=== PATIENT | female | born 1975 | race Caucasian/White ===

== ENCOUNTER → 2016-05-28 | Outpatient (CLI) | payer OTHER ==
[~2016-05-28] MED LIST: ABILIFY 10MG TA10 MG PO; AMOXICILLIN 50500 MG PO; ASPI325T6 PO; ASPIRIN 81M81 MG/TA2 PO; ATIVAN 1MG T1 MG/TAB PO; CARDIZEM 30MG T30 MG PO; CLARITIN 1010 MG/TAB PO; COZAAR 25MG25 MG/TAB PO; DOXYCYCLINE 10100 MG PO; FISH OIL 1000MG1 CAP PO; GARLIC100 MG PO; GEODON80 MG PO; GLUCOPHAGE1000 MG PO; HYGROTON 2525 MG/TAB PO; IMDUR 30MG30 MG/TAB PO; ISORDIL TITRADO30 MG PO; KLONOPIN 0.5MG0.5 MG PO; LAMICTAL 25MG T25 MG PO; LAMICTAL150 MG PO; LAMICTAL200 MG PO; LANTUS SOLOS100 U/ML SQ; LASIX 40MG TABL40 MG PO; LEVEMIR FLEX100 U/ML SQ; LEXAPRO 10MG10 MG PO; LIPITOR 10MG10 MG PO; LIPITOR 80MG80 MG PO; LOPRESSOR 550 MG/TAB PO; LOPRESSOR100 MG PO; MULTI VITAMINS1 TAB PO; NATURE'S BLEN5000 IU PO; NEURONTIN300 MG/CAP PO; NEXIUM 40MG40 MG PO; NITROSTAT0.4 MG/TAB SL; NOVOLOG 100U100 U/M1; PERFOROMIS20 MCG/2 M IH; PLAVIX 75MG TAB75 MG PO; PREDNISONE20 MG PO; PROAIR HFA0.09 MG/AC IH; RANEXA 500MG T500 MG PO; RT ADVAIR 128 DISKUS; RT ADVAIR 228 DISKUS IH; TENORMIN 2525 MG/TAB PO; TOPROL XL100 MG PO; VELTASSA8.4 GM PO; VOLTAREN GEL 1%1 TU TP; ZITHROMAX 250M250 MG PO
== END ==
LOC: BHSO 08:54
DX: F31.32 Bipolar disorder, current episode depressed, moderate (principal)

== ENCOUNTER → 2016-05-30 | Outpatient (CLI) | payer OTHER | LOC: COL.VAS 07:54 | DX: I08.0 Rheumatic disorders of both mitral and aortic valves (principal); R06.02 Shortness of breath | CPT/HCPCS: C8923; Q9957 ==

== ENCOUNTER → 2016-07-09 | Outpatient (CLI) | payer OTHER | LOC: BHSO 08:52 | DX: F31.73 Bipolar disorder, in partial remission, most recent episode manic (principal) ==

== ENCOUNTER → 2016-08-31 | Outpatient (CLI) | payer OTHER | LOC: BHSO 08:55 | DX: F33.1 Major depressive disorder, recurrent, moderate (principal) ==

== ENCOUNTER → 2016-10-04 | Outpatient (CLI) | payer OTHER | LOC: BHSO 10:20 | DX: F31.73 Bipolar disorder, in partial remission, most recent episode manic (principal) ==

== ENCOUNTER 2016-10-06 17:33 | Inpatient (IN) | payer OTHER ==
[~2016-10-06] VITALS: Ht 165.1 cm; Wt 151.4 kg
[2016-10-06] VITALS (119 sets, daily range): BP systolic 154; BP diastolic 72–77; PULSE 86–87; TEMP 99–99.3; O2SAT 84–100
[~2016-10-06 17:33] MED LIST changes: -CARDIZEM 30MG T30 MG PO; -LAMICTAL150 MG PO; -LASIX 40MG TABL40 MG PO; -LEXAPRO 10MG10 MG PO
[2016-10-06 18:27] LABS: ARTERIAL BLD GAS O2 SATURATION 88.5 % (92-100); ARTERIAL BLD GAS TCO2 CT 31.2; ARTERIAL BLOOD GAS BASE EXCESS 0.7 (-2-2); ARTERIAL BLOOD GAS HCO3 29.2 meq/L (22-26); ARTERIAL BLOOD GAS PO2 60.2 mmHg (80-100); ARTERIAL BLOOD GAS pH 7.26 (7.35-7.45); OXYHEMOGLOBIN 79.8 %
[2016-10-06 18:28] LABS: ATS? YES
[2016-10-06] MEDS ORDERED: VOLTAREN GEL 1%1 TU TP (19:55)
[2016-10-06] MEDS ORDERED: LASIX 40MG TABL40 MG PO (19:56)
[2016-10-06] MEDS ORDERED: CARDIZEM 30MG T30 MG PO (20:00)
[2016-10-06] MEDS ORDERED: LEXAPRO 10MG10 MG PO (20:00)
[2016-10-06] MEDS ORDERED: LAMICTAL150 MG PO (20:01)
[2016-10-06 20:45] LABS: ARTERIAL BLD GAS O2 SATURATION 92.3 % (92-100); ARTERIAL BLD GAS TCO2 CT 30.1; ARTERIAL BLOOD GAS BASE EXCESS 1.9 (-2-2); ARTERIAL BLOOD GAS HCO3 28.5 meq/L (22-26); ARTERIAL BLOOD GAS PHT 7.35 C (7.35-7.45); ARTERIAL BLOOD GAS PO2 64.5 mmHg (80-100); ARTERIAL BLOOD GAS PO2T 64.5 (80-100); ARTERIAL BLOOD GAS pH 7.35 (7.35-7.45); OXYHEMOGLOBIN 85.1 %
[2016-10-06 20:47] LABS: ALLEN TEST NO; ATS? NO
== END 2016-10-06 22:00 | disposition left against medical advice (07) | DRG 189 ==
LOC: MEDICAL 17:33 → ICU 19:11
PROVIDERS: Nurse Practitioner Family
DX: J96.22 Acute and chronic respiratory failure with hypercapnia (principal); J44.1 Chronic obstructive pulmonary disease with (acute) exacerbation; E66.2 Morbid (severe) obesity with alveolar hypoventilation; Z68.43 Body mass index [BMI] 50.0-59.9, adult; J96.21 Acute and chronic respiratory failure with hypoxia; E11.9 Type 2 diabetes mellitus without complications; I10 Essential (primary) hypertension; E78.5 Hyperlipidemia, unspecified; I25.10 Atherosclerotic heart disease of native coronary artery without angina pectoris; F17.210 Nicotine dependence, cigarettes, uncomplicated; K58.9 Irritable bowel syndrome, unspecified; B37.2 Candidiasis of skin and nail; L89.312 Pressure ulcer of right buttock, stage 2; R10.84 Generalized abdominal pain; Z95.5 Presence of coronary angioplasty implant and graft; Z79.84 Long term (current) use of oral hypoglycemic drugs; Z99.81 Dependence on supplemental oxygen
CPT/HCPCS: 99223-AI; J1170; J1815; J2405; J2930; J7030

== ENCOUNTER → 2016-11-16 | Outpatient (CLI) | payer OTHER ==
[~2016-11-16] MED LIST changes: +CARDIZEM 30MG T30 MG PO; +LAMICTAL150 MG PO; +LASIX 40MG TABL40 MG PO; +LEXAPRO 10MG10 MG PO
== END ==
LOC: BHSO 09:11
DX: F33.1 Major depressive disorder, recurrent, moderate (principal)

== ENCOUNTER → 2017-01-15 | Outpatient (CLI) | payer OTHER | LOC: BHSO 08:49 | DX: F31.73 Bipolar disorder, in partial remission, most recent episode manic (principal) ==

== ENCOUNTER 2017-02-08 12:55 | Day surgery (SDC) | payer OTHER ==
[~2017-02-08] VITALS: Ht 165.1 cm; Wt 143.2 kg
[~2017-02-08 12:55] MED LIST changes: -NATURE'S BLEN5000 IU PO; +VITAMIND3 5000 PO
[2017-02-08] MEDS ORDERED: LIPITOR 80MG80 MG PO (13:16)
[2017-02-08] MEDS ORDERED: LAMICTAL200 MG PO (13:18)
[2017-02-08] MEDS ORDERED: HYGROTON 2525 MG/TAB PO (13:20)
[2017-02-08] MEDS ORDERED: ASPIRIN 32325 MG/TAB PO (13:21)
[2017-02-08] MEDS ORDERED: PLAVIX 75MG TAB75 MG PO (13:21)
[2017-02-08] MEDS ORDERED: ZAROXOLYN5 MG PO (13:30)
[2017-02-08] MEDS ORDERED: PROTONIX 40MG T40 MG PO (13:31)
[2017-02-08] MEDS ORDERED: ZOFRAN8 MG PO (13:32)
[2017-02-08 13:42] VITALS: BP 169/81; PULSE 76; TEMP 98.4
[2017-02-08] MEDS ORDERED: LEVSIN0.125 M1 PO (15:26)
[2017-02-08] MEDS ORDERED: ANUSOL-HC SUPPO25 MG RC (15:27)
[2017-02-08 15:35] VITALS: BP 160/71; PULSE 83; TEMP 98
[2017-02-08 15:50] VITALS: BP 164/87; PULSE 86
[2017-02-08 16:05] VITALS: BP 165/86; PULSE 80
== END 2017-02-08 16:30 | disposition home or self-care (01) ==
LOC: SDCO 12:55
DX: K64.0 First degree hemorrhoids (principal); K92.1 Melena; K59.00 Constipation, unspecified; I25.2 Old myocardial infarction; I11.0 Hypertensive heart disease with heart failure; I50.9 Heart failure, unspecified; I48.92 Unspecified atrial flutter; J44.9 Chronic obstructive pulmonary disease, unspecified; E11.9 Type 2 diabetes mellitus without complications; G47.33 Obstructive sleep apnea (adult) (pediatric); F17.210 Nicotine dependence, cigarettes, uncomplicated; K21.9 Gastro-esophageal reflux disease without esophagitis; M19.90 Unspecified osteoarthritis, unspecified site; F41.9 Anxiety disorder, unspecified; I25.119 Atherosclerotic heart disease of native coronary artery with unspecified angina pectoris; Z79.01 Long term (current) use of anticoagulants; Z79.84 Long term (current) use of oral hypoglycemic drugs
CPT/HCPCS: OP; J2250; J2704; J3010; J7030

== ENCOUNTER → 2017-08-29 | Outpatient (CLI) | payer OTHER ==
[~2017-08-29] MED LIST changes: +ANUSOL-HC SUPPO25 MG RC; +ASPIRIN 32325 MG/TAB PO; +LEVSIN0.125 M1 PO; +PROTONIX 40MG T40 MG PO; +ZAROXOLYN5 MG PO; +ZOFRAN8 MG PO
== END ==
LOC: BHSO 14:59
DX: F31.81 Bipolar II disorder (principal)
CPT/HCPCS: G0463

== ENCOUNTER → 2017-11-01 | Outpatient (CLI) | payer OTHER | LOC: BHSO 08:58 | DX: F31.81 Bipolar II disorder (principal) | CPT/HCPCS: G0463 ==

== ENCOUNTER → 2018-02-04 | Outpatient (CLI) | payer OTHER ==
[~2018-02-04] MED LIST changes: +ATROVENT INHALE14 GM IH; +CELEBREX 1100 MG/CAP PO; +CHANTIX 1MG1 MG PO; +IMDUR 60MG60 MG/TAB PO; +PERCOCET 325 MG1 TA2 PO; +REGLAN 10MG10 MG/TAB PO; +SINGULAIR 110 MG/TAB PO; +ULTRAM ER100 MG PO; +ZYRTEC 10MG10 MG PO
== END ==
LOC: BHSO 10:20
DX: F31.81 Bipolar II disorder (principal)
CPT/HCPCS: G0463

== ENCOUNTER → 2018-04-17 | Outpatient (CLI) | payer OTHER | LOC: BHSO 09:39 | DX: F31.81 Bipolar II disorder (principal) | CPT/HCPCS: G0463 ==

== ENCOUNTER → 2018-07-24 | Outpatient (CLI) | payer OTHER | LOC: BHSO 09:15 | DX: F31.81 Bipolar II disorder (principal) | CPT/HCPCS: G0463 ==

== ENCOUNTER 2018-10-06 16:35 | Inpatient (IN) | payer OTHER ==
[~2018-10-06] VITALS: Ht 165.1 cm; Wt 109.4 kg
--- NOTE | 2018-10-06 16:30 | NUR ---
Pt arrives to medical unit rm 318 via EMS. Pt awake and alert, oriented x 3. O2 in place via NC. IVF's to gravity to right AC site without s/s of complications. Pt's bringing home medication list. Provider notified of arrival. Call light in reach.
[2018-10-06 16:59] VITALS: BP 135/66; PULSE 87; TEMP 98
[2018-10-06] MEDS ORDERED: TOPROL XL 50MG50 MG PO (18:14)
[2018-10-06] MEDS ORDERED: VITAMIN C500 MG PO (18:16)
[2018-10-06] MEDS ORDERED: PARLODEL 2.5MG2.5 MG PO (19:26)
[2018-10-06] MEDS ORDERED: PHENERGAN 25 TA25 MG PO (19:36)
[2018-10-06 19:52] LABS: PARTIAL THROMBOPLASTIN TIME 34.3 SECONDS (26.0-37.0)
[2018-10-06] MEDS ORDERED: KHEDEZLA50 MG PO (19:55)
--- NOTE | 2018-10-06 20:20 | NUR ---
Admission assessment completed. Moist under left breast and left groin. Red in both areas. Pt states she uses deodarant in both places. Bruises noted on R upper arm, LLL, R buttocks, L buttocks. Bottom of feet black from dirt. Foul body odor. O2 at 4l/nc. SL intact R AC.
--- NOTE | 2018-10-06 22:42 | NUR ---
PRN SVN GIVEN PT HAD FAINT BILATERAL EXP WHEEZES, CLEARING WITH TREATMENT. PT SAT 90% ON 4 LPM NC NO IMPROVEMENT POST NEB
[2018-10-07] VITALS (8 sets, daily range): BP systolic 103–137; BP diastolic 44–80; PULSE 69–91; TEMP 97.9–98.6
--- NOTE | 2018-10-07 04:18 | NUR ---
heparin xa resulted @ 0342 @ 0.42. PER PROTOCOL NO CHANGE ON HEPARIN DRIP INFUSION. TO CONTINUE AT 19.5ML/HR AND RE CHECK HEPARIN XA 10/07 @ 1000. ORDER PLACED FOR HEPARIN XA AT 1000. RESULTS, HEPARIN DRIP ORDER, AND INFUSION VERIFIED BY HENRIK CLEARY.
[2018-10-07 06:54] LABS: BASO % 0.1 % (0.0-2.0); EOS % 0.1 % (0-4.0); GRAN # 7.5 (1.4-6.5); HEMOGLOBIN 10.5 g/dl (12.5-16.0); LYMPH # 0.7 (1.2-3.4); LYMPH % 8.3 % (20.0-51.0); MEAN CELL VOLUME 104 fl (80.0-100.0); MEAN CORPUSCULAR HEMOGLOBIN 33 pg (27.0-31.0); MEAN CORPUSCULAR HGB CONC 32 g/dl (33.0-37.0); MEAN PLATELET VOLUME 9.8 fl (7.4-10.4); MONO # 0.3 (0.1-0.6); MONO % 2.9 % (1.7-9.3); PLATELET COUNT 206 K/mm3 (130-400); RED BLOOD COUNT 3.16 M/mm3 (4.10-5.30); REDCELL DISTRIBUTION WIDTH-CV 14.9 % (11.5-14.5)
[2018-10-07 06:55] LABS: ANION GAP 13 mmol/L (7-16); BLOOD UREA NITROGEN 38 mg/dL (7-17); CALCIUM 8.8 mg/dL (8.4-10.2); CARBON DIOXIDE 23 mmol/L (22-30); CHLORIDE 106 mmol/L (98-107); CREATININE, serum 2.67 (0.52-1.25); GLUCOSE 165 mg/dL (74-106); POTASSIUM 3.9 mmol/L (3.4-5.0); SODIUM 141 mmol/L (137-145)
[2018-10-07 07:07] LABS: TROPONIN-I < 0.012 ng/mL (0.000-0.035)
[2018-10-07 07:23] LABS: HEMATOCRIT 32.8 % (37.0-47.0)
[2018-10-07 13:05] LABS: MUCOUS Present /lpf; PH 5 (5-8); URINE APPEARANCE Cloudy; URINE BACTERIA Occasional /hpf; URINE BILIRUBIN Negative (NEGATIVE); URINE BLOOD Negative (NEGATIVE); URINE COLOR Amber; URINE GLUCOSE Negative (NEGATIVE); URINE KETONE Negative (NEGATIVE); URINE LEUKOCYTE ESTERASE 2+ (NEGATIVE); URINE NITRATE Negative (NEGATIVE); URINE PROTEIN(semi-quant) Negative (NEGATIVE); URINE UROBILINOGEN Negative (NEGATIVE)
[2018-10-07 13:10] LABS: COLLECTION METHOD CLEAN CATCH
--- NOTE | 2018-10-07 15:05 | NUR ---
SANG met with the patient to discuss discharge plan. The patient lives in [place] with her , Evan, and a roommate. She reports independence with ADLs and has a cane, walker, wheelchair, and home oxygen through [facility]. The patient's PCP is Dr. Izabela Carvalho and she receives her medications from [facility] in [place]. She reports no difficulties obtaining her meds. The patient does not have advanced directives in EMR, but she states that she does have them completed and at home. SANG then discussed therapies recommendation of home health. The patient reports that she would be agreeable to home health. SANG presented the patient with Medicare.gov's list of home health agencies that serve [place]. The patient chose [facility]. SANG attempted to contact Kemi at [facility]. SANG left a voicemail. SANG faxed the referral. SANG to continue to follow.
--- NOTE | 2018-10-07 18:30 | NUR ---
Pt alert and oriented. Pt remains on oxygen via nasal cannula. Pt going to have VQ at 1300 and diet can be advanced. Pt has chronic pain but trying to stay away from narcotic if possible. Pt advised to call if wants pain medication. Pt repositions often and denies needs. Pt has call light in reach. Pt IV no redness or infiltration at either site.
--- NOTE | 2018-10-07 19:28 | NUR ---
Pt stable and denies needs. Pt spouse at bedside. Pt states she is feeling little better. Pt taking Reaglan before meals and tolerating well. Pt IV intact no redness or infiltration noted. Pt has NS running per orders and Heparin gtt has been discontinued. Pt has oxygen via nasal cannula. Pt has call light in reach.
[2018-10-08 00:26] VITALS: BP 137/60; PULSE 82; TEMP 98.3
[2018-10-08 04:43] VITALS: BP 104/52; PULSE 101; TEMP 98.6
[2018-10-08 06:59] LABS: HEMOGLOBIN 10.4 g/dl (12.5-16.0); MEAN CELL VOLUME 104 fl (80.0-100.0); MEAN CORPUSCULAR HEMOGLOBIN 34 pg (27.0-31.0); MEAN CORPUSCULAR HGB CONC 33 g/dl (33.0-37.0); MEAN PLATELET VOLUME 10.2 fl (7.4-10.4); PLATELET COUNT 220 K/mm3 (130-400); RED BLOOD COUNT 3.03 M/mm3 (4.10-5.30); REDCELL DISTRIBUTION WIDTH-CV 14.4 % (11.5-14.5)
[2018-10-08 07:09] LABS: HEMATOCRIT 31.6 % (37.0-47.0)
--- NOTE | 2018-10-08 07:10 | NUR ---
RECEIVED REPORT FROM EVIN HOYOS.PATIENT SLEEPING AT THIS TIME.SPOUSE AT BEDSIDE.DENIES ANY NEEDS AT THIS TIME.
[2018-10-08 07:17] LABS: CALCIUM 8.7 mg/dL (8.4-10.2); CREATININE, serum 1.93 (0.52-1.25); MAGNESIUM 1.9 mg/dL (1.6-2.3); POTASSIUM 4.2 mmol/L (3.4-5.0)
[2018-10-08 07:37] LABS: LYMPHOCYTE 6 % (20.0-51.0); NEUTROPHILS 92 % (42.0-75.2); PLATELET ESTIMATE NORMAL (NORMAL)
[2018-10-08 08:10] VITALS: BP 129/66; PULSE 76; TEMP 98.4
--- NOTE | 2018-10-08 09:00 | NUR ---
Assessment complete.patient awake,a/ox3.denies pain or discomfort at this time.states she has chronic pain to her back but does not need anything.breathing evenand unlabored.oxygen at 3L/nC.stats in 90s.Exp wheezes noted to right lower lobe.pt reports having productive cough.states"its getting better"all meds given.INT to RAC and LFA patent.pt reports improved urine output.blood glucose stable.pt worked with therapy today and tolerated well.will continue to monitor.call light in reach
--- NOTE | 2018-10-08 10:49 | NUR ---
RECEIVED CALL FROM EVIN KRAMERELECTRIC BRAIN WAVE EQUIPMENT MECHANIC FROM [facility] IN [place].UPDATE GIVEN REGARDING PATIENT.REQUESTED CONTACT WITH .ALSO STATES SHE WILL ASSIST IN SETTING UP F/U WITH PRIMARY DOCTOR UPON DISCHARGE.
[2018-10-08 11:24] VITALS: BP 142/67; PULSE 73; TEMP 97.9
[2018-10-08 17:15] VITALS: BP 141/47; PULSE 76; TEMP 98.5
--- NOTE | 2018-10-08 18:43 | NUR ---
PT CALLED OUT REPORTING HER DESIRE TO LEAVE AGAINST MEDICAL ADVICE.THIS RN ATTEMPTED TO CONVINCE PATIENT TO STAY.PT WAS PERSISTENT ABOUT LEAVING AND STATED THAT SHE IS NOT INTERESTED IN COMPLETING HER LEVAQUIN THAT IS INFUISNG AT THIS TIME.NOEL DAMIAN NOTIFIED.
--- NOTE | 2018-10-08 19:08 | NUR ---
PT SIGNED AMA PAPERWORK AND STATED THAT SHE UNDERSTANDS THE RISK OF LEAVING AMA.PT DECLINED TO COMPLETE HER ANTIBIOTIC.
--- NOTE | 2018-10-08 19:19 | NUR ---
REPORT GIVEN TO EVIN HOYOS.
--- NOTE | 2018-10-08 19:45 | NUR ---
PATIENT SEEN BY RICKIE GÓMEZ. CONTINUES TO REQUEST TO LEAVE AMA. AMA PAPER SIGNED. IV ACCESS DISCONTINUED. REVIEWED MEDICATIONS TO BE PICKED UP FROM PHARMACY. PATIENT AND ACKNOWLEDGE UNDERSTANDING. INSTRUCTED TO F/U WITH PCP IN ONE WEEK. DISCHAGED FROM FLOOR @ 1930 ACCOMPANIED BY AND THIS NURSE.
== END 2018-10-08 19:30 | disposition left against medical advice (07) | DRG 190 ==
LOC: MEDICAL 16:35
PROVIDERS: Nurse Practitioner Family; Physician Assistant; ADMIT Family Medicine
DX: J44.1 Chronic obstructive pulmonary disease with (acute) exacerbation (principal); J96.00 Acute respiratory failure, unspecified whether with hypoxia or hypercapnia; Z68.41 Body mass index [BMI] 40.0-44.9, adult; I50.32 Chronic diastolic (congestive) heart failure; I13.0 Hypertensive heart and chronic kidney disease with heart failure and stage 1 through stage 4 chronic kidney disease, or unspecified chronic kidney disease; F31.9 Bipolar disorder, unspecified; I25.10 Atherosclerotic heart disease of native coronary artery without angina pectoris; K42.9 Umbilical hernia without obstruction or gangrene; E11.65 Type 2 diabetes mellitus with hyperglycemia; E66.01 Morbid (severe) obesity due to excess calories; E11.22 Type 2 diabetes mellitus with diabetic chronic kidney disease; E11.51 Type 2 diabetes mellitus with diabetic peripheral angiopathy without gangrene; N18.3 Chronic kidney disease, stage 3 (moderate); I25.2 Old myocardial infarction; E78.5 Hyperlipidemia, unspecified; K58.9 Irritable bowel syndrome, unspecified; F43.10 Post-traumatic stress disorder, unspecified; F17.210 Nicotine dependence, cigarettes, uncomplicated; Z95.5 Presence of coronary angioplasty implant and graft; Z95.818 Presence of other cardiac implants and grafts; Z79.84 Long term (current) use of oral hypoglycemic drugs; Z79.02 Long term (current) use of antithrombotics/antiplatelets; Z88.1 Allergy status to other antibiotic agents; Z88.8 Allergy status to other drugs, medicaments and biological substances; Z71.51 Drug abuse counseling and surveillance of drug abuser; Z91.81 History of falling
CPT/HCPCS: 99222-AI; 99232-AI; A9540; A9567; J1644; J1815; J1940; J1956; J2930; J7030; J7512

== ENCOUNTER → 2018-10-27 | Outpatient (CLI) | payer OTHER ==
[~2018-10-27] MED LIST changes: +KHEDEZLA50 MG PO; +PARLODEL 2.5MG2.5 MG PO; +PHENERGAN 25 TA25 MG PO; +TOPROL XL 50MG50 MG PO; +VITAMIN C500 MG PO
== END ==
LOC: BHSO 10:02
DX: F31.81 Bipolar II disorder (principal)
CPT/HCPCS: G0463

== ENCOUNTER → 2018-11-25 | Outpatient (CLI) | payer OTHER | LOC: BHSO 09:38 | DX: F31.81 Bipolar II disorder (principal) | CPT/HCPCS: G0463 ==

== ENCOUNTER → 2018-12-23 | Outpatient (CLI) | payer OTHER | LOC: BHSO 09:39 | DX: F31.81 Bipolar II disorder (principal) | CPT/HCPCS: G0463 ==

== ENCOUNTER 2019-01-20 06:21 | Day surgery (SDC) | payer OTHER ==
[2019-01-20] VITALS (11 sets, daily range): BP systolic 106–153; BP diastolic 48–76; PULSE 74–89; TEMP 97.7–99
[~2019-01-20] VITALS: Ht 165.1 cm; Wt 127.2 kg
[2019-01-20] MEDS ORDERED: PRISTIQ 50 MG T50 MG PO (07:13)
[2019-01-20] MEDS ORDERED: NEURONTIN300 MG/CAP PO ×2 (07:15)
[2019-01-20] MEDS ORDERED: LEVSIN0.125 M1 PO (07:17)
[2019-01-20] MEDS ORDERED: KLONOPIN 0.5MG0.5 MG PO (07:19)
[2019-01-20] MEDS ORDERED: CARDIZEM 60MG T60 MG PO (07:19)
[2019-01-20] MEDS ORDERED: XOPENEX HF0.045 MG/A IH (07:21)
[2019-01-20] MEDS ORDERED: FLOVENT DI50 MCG/Act IH (07:22)
[2019-01-20] MEDS ORDERED: ALBUTEROL0.83 MG/ML IH (07:24)
[2019-01-20] MEDS ORDERED: BUTRANS5 MCG/HR TD (07:26)
[2019-01-20] MEDS ORDERED: ZANAFLEX CAPSULE4 MG PO (07:28)
[2019-01-20 08:20] LABS: CREATININE, serum 1.78 (0.52-1.25); POTASSIUM 4.9 mmol/L (3.4-5.0)
[2019-01-20 08:23] LABS: ARTERIAL BLD GAS O2 SATURATION 94.2 % (92-100); ARTERIAL BLD GAS TCO2 CT 22.3; ARTERIAL BLOOD GAS BASE EXCESS -3.8 (-2-2); ARTERIAL BLOOD GAS HCO3 21.1 meq/L (22-26); ARTERIAL BLOOD GAS PCO2 38.1 mmHg (35-45); ARTERIAL BLOOD GAS PO2 67.5 mmHg (80-100); ARTERIAL BLOOD GAS pH 7.36 (7.35-7.45)
--- NOTE | 2019-01-20 09:33 | NUR ---
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 She has one negative nare screening on file here at our facility and reports having "several" other negative screenings "at other facilities". After speaking with Tere Martinez RN it was decided the patient did not need to be placed on contact isolation.
--- NOTE | 2019-01-20 11:40 | NUR ---
Patient up from PACU at 1130, Alert and oriented x 3. Post op VSS. Post op fluids infusing. Lap sites x 2 with gauze dressing is CDI. Miline incision also CDI. Denies pain at this time however states nausea, emisis x 1. Medication given per orders. Denies further needs at this time.
--- NOTE | 2019-01-20 18:18 | NUR ---
Patient has done well throughout the afternoon. Family at bedside. Dressings remain CDI. SCDs to BLE. Denies further needs at this time. Will report off to correctional counselor/case manager.
--- NOTE | 2019-01-20 19:15 | NUR ---
Report received. Assumed care for casino shift manager. Assessment complete. VS stable. C/O pain to abdomen rating 8/10-norco given per order. Gauze dressing to abdomen-C/D/I- lap site x2-gauze-C/D/I. Bilat SCDS. Plan of care discussed for pain meds, HS meds, Ambulation and diet. Verbalizes understanding. States she is voiding well. Up to bathroom at this time with stand by assist. C/O some nausea but states she will wait for medication to see if it passes. Denies shortness of breath-O2@4L/NC. Denies questions or concerns. Call light in reach. Bed in low postion. Will monitor.
--- NOTE | 2019-01-21 03:30 | NUR ---
Rating pain 8/10 to abdomen described as throbbing. Talmage given at 0250-pain unchanged. Morphine given IV per dr order. Is very upset stating "my dog is missing-the person watching her cant find her." at bedside is headed to help locate dog but states he doesnt know if they have the money for gas to come back to pick her up at discharge. Spoke with them both at length-will be calling later today to update. Has not had anymore nausea this shift. IV INTd at this time. Denies any other question or concerns. Will monitor.
[2019-01-21 04:52] VITALS: BP 166/86; PULSE 98; TEMP 98.7
[2019-01-21 07:53] VITALS: BP 156/65; PULSE 98; TEMP 98.4
--- NOTE | 2019-01-21 08:00 | NUR ---
PATIENT IS DROWSY AND RESTING IN BED THIS MORNING. PATIENT AROUSES EASILY TO NAME. PATIENT IS A&OX4. VSS. BOWEL SOUNDS ACTIVE ALL FOUR QUADRANTS. PATIENT TOLERATING DIET. ABDOMINAL LAP SITES X2 DRESSED WITH GAUZE & HYPAFIX AND IS CD&I. UMBILICAL INCISION DRESSED WITH GAUZE AND HYPAFIX AND IS CD&I. POSITIVE PEDAL PULSES EQUAL BILATERALLY. SCD'S TO BLE. INT TO RIGHT AC. CALL LIGHT WITHIN REACH. PATIENT DENIES ANY OTHER NEEDS AT THIS TIME.
[2019-01-21] MEDS ORDERED: NORCO 325 MG-7.1 TAB PO (08:50)
--- NOTE | 2019-01-21 10:20 | NUR ---
hide mill worker met with patient to discuss discharge planning. Patient states she lives with her and a roommate and plans to return there upon discharge today. Patient states she has been independent and her primary care provider is Dr Carvalho at [facility] in [place]. Patient states she was receiving her medications at [facility] and beginning Jan 27, will need to obtain all of her medications at [facility]. Patient states she has a living will and a durable power of insurance attorney for health care and that copies were made for our records. Patient denies any unmet needs regarding discharge today.
--- NOTE | 2019-01-21 11:10 | NUR ---
PATIENTS RIGHT AC INT DISCONTINUED PER PENDING DISCHARGE. TIP INTACT. PATIENT TOLERATED WELL. DISCHARGE INSTRUCTIONS REVIEWED WITH PATIENT AND . ALL QUESTIONS ANSWERED. PATIENT PERSONAL BELONGINGS GATHERED. PATIENT TAKEN TO PERSONAL VEHICLE VIA WHEELCHAIR BY SURGICAL STAFF. PATIENT DISCHARGED.
--- NOTE | 2019-01-21 11:54 | NUR ---
Initial visit; Patient and thanked Circulation Analyst for offering God's blessings for looking in on her offering comfort and God's blessings for a thorough and rapid recovery from her surgical procedure.
== END 2019-01-21 11:10 | disposition home or self-care (01) ==
LOC: SDCO 06:21 → SURG 11:37 → SDCO 01-21 11:10
PROVIDERS: Nurse Anesthetist, Certified Registered
DX: K81.1 Chronic cholecystitis (principal); K42.9 Umbilical hernia without obstruction or gangrene; Z79.899 Other long term (current) drug therapy; I25.119 Atherosclerotic heart disease of native coronary artery with unspecified angina pectoris; Z79.82 Long term (current) use of aspirin; F17.210 Nicotine dependence, cigarettes, uncomplicated; I73.9 Peripheral vascular disease, unspecified; I25.2 Old myocardial infarction; I13.0 Hypertensive heart and chronic kidney disease with heart failure and stage 1 through stage 4 chronic kidney disease, or unspecified chronic kidney disease; N18.3 Chronic kidney disease, stage 3 (moderate); I50.9 Heart failure, unspecified; E11.22 Type 2 diabetes mellitus with diabetic chronic kidney disease; Z79.84 Long term (current) use of oral hypoglycemic drugs; I38 Endocarditis, valve unspecified; Z79.02 Long term (current) use of antithrombotics/antiplatelets; Z95.5 Presence of coronary angioplasty implant and graft; Z95.818 Presence of other cardiac implants and grafts; J44.9 Chronic obstructive pulmonary disease, unspecified; J40 Bronchitis, not specified as acute or chronic; Q21.1 Atrial septal defect; K58.9 Irritable bowel syndrome, unspecified; K21.9 Gastro-esophageal reflux disease without esophagitis; F41.9 Anxiety disorder, unspecified; F31.9 Bipolar disorder, unspecified; F43.10 Post-traumatic stress disorder, unspecified; M19.90 Unspecified osteoarthritis, unspecified site; Z98.62 Peripheral vascular angioplasty status; J43.9 Emphysema, unspecified; E78.00 Pure hypercholesterolemia, unspecified; Z82.49 Family history of ischemic heart disease and other diseases of the circulatory system; R06.83 Snoring
CPT/HCPCS: OP; J0360; J1644; J2270; J2405; J2704; J3010; J7120

== ENCOUNTER → 2019-01-28 | Outpatient (CLI) | payer OTHER ==
[~2019-01-28] MED LIST changes: +ALBUTEROL0.83 MG/ML IH; +BUTRANS5 MCG/HR TD; +CARDIZEM 60MG T60 MG PO; +FLOVENT DI50 MCG/Act IH; +NORCO 325 MG-7.1 TAB PO; +PRISTIQ 50 MG T50 MG PO; +XOPENEX HF0.045 MG/A IH; +ZANAFLEX CAPSULE4 MG PO
== END ==
LOC: BHSO 08:52
DX: F31.81 Bipolar II disorder (principal)
CPT/HCPCS: G0463

== ENCOUNTER → 2019-03-05 | Outpatient (CLI) | payer OTHER | LOC: BHSO 10:04 | DX: F31.81 Bipolar II disorder (principal) | CPT/HCPCS: G0463 ==

== ENCOUNTER → 2019-05-11 | Outpatient (CLI) | payer OTHER | LOC: BHSO 10:23 | DX: F31.81 Bipolar II disorder (principal) | CPT/HCPCS: G0463 ==

== ENCOUNTER → 2019-07-06 | Outpatient (CLI) | payer OTHER | LOC: BHSO 09:51 | DX: F31.81 Bipolar II disorder (principal) | CPT/HCPCS: G0463 ==

== ENCOUNTER → 2020-02-25 | Outpatient (CLI) | payer OTHER | LOC: BHSO 10:11 | DX: F31.81 Bipolar II disorder (principal) | CPT/HCPCS: G0463 ==